=== PATIENT | male | born 1980 | race Caucasian/White ===

== ENCOUNTER 2016-09-30 01:58 | Emergency (ER) | payer SELFPAY ==
[2016-09-30] MEDS ORDERED: OXYCODONE-ACETAMINOPHEN 5-325 MG TABLET PO ONE (05:10)
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
[2016-09-30] MEDS ORDERED: CEPHALEXIN 500 MG CAPSULE PO ONE (06:33)
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
[2016-09-30] MEDS ORDERED: ACETAMINOPHEN 325 MG TABLET ONE (08:25)
[2016-09-30 08:36] VITALS: BP 141/100
== END 2016-09-30 08:20 | disposition home or self-care (01) ==
LOC: ER 01:58
DX: S02.2XXA Fracture of nasal bones, initial encounter for closed fracture (principal); S02.82XA Fracture of other specified skull and facial bones, left side, initial encounter for closed fracture; S02.40DA Maxillary fracture, left side, initial encounter for closed fracture; Y04.2XXA Assault by strike against or bumped into by another person, initial encounter; Y92.009 Unspecified place in unspecified non-institutional (private) residence as the place of occurrence of the external cause; R51 Headache; F17.200 Nicotine dependence, unspecified, uncomplicated
CPT/HCPCS: 99284; 70450; 70486; 72125; L0120

== ENCOUNTER 2016-12-06 08:52 | Emergency (ER) | payer SELFPAY ==
[2016-12-06] MEDS ORDERED: MORPHINE SULFATE 10 MG/ML INJ IV ONE (09:52)
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
[2016-12-06 12:03] VITALS: BP 126/85
== END 2016-12-06 12:03 | disposition home or self-care (01) ==
LOC: ER 08:52
DX: T14.8 Other injury of unspecified body region (principal); R07.81 Pleurodynia; M25.551 Pain in right hip; R10.9 Unspecified abdominal pain; V86.99XA Unspecified occupant of other special all-terrain or other off-road motor vehicle injured in nontraffic accident, initial encounter; Y93.89 Activity, other specified; F17.200 Nicotine dependence, unspecified, uncomplicated; B36.0 Pityriasis versicolor
CPT/HCPCS: 99283; 96374; 71260; 74177; J2270

== ENCOUNTER 2018-09-20 12:40 | Emergency (ER) | payer SELFPAY ==
[2018-09-20 13:20] VITALS: BP 122/80
--- NOTE | 2018-09-20 13:50 | RADIOLOGY REPORT (SQ) ---
EXAM DESCRIPTION: HAND RIGHT 3 VIEWS COMPLETED DATE/TIME: 09/20/2018 1:37 pm REASON FOR STUDY: injury COMPARISON: None. EXAM PARAMETERS: NUMBER OF VIEWS: Three views. TECHNIQUE: AP, lateral and oblique radiographic images acquired of the right hand. LIMITATIONS: None. FINDINGS: MINERALIZATION: Normal. BONES: No acute fracture or dislocation. Old avulsion fragment along the dorsal base 5th metacarpal at the carpometacarpal joint. JOINTS: No effusions. SOFT TISSUES: No soft tissue swelling. No foreign body. OTHER: No other significant finding. IMPRESSION: No acute fracture. Old avulsion fragment along the dorsal base 5th metacarpal at the carpometacarpal joint. TECHNICAL DOCUMENTATION: JOB ID: [id number] [employer]- All Rights Reserved Reading location - IP/workstation name: [email or web address]
[2018-09-20] MEDS ORDERED: IBUPROFEN 600 MG TABLET PO ONE (14:34)
[2018-09-20] MEDS ORDERED: ACETAMINOPHEN 325 MG TABLET PO ONE (14:34)
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
== END 2018-09-20 14:55 | disposition home or self-care (01) ==
LOC: ER 12:40
DX: S69.91XA Unspecified injury of right wrist, hand and finger(s), initial encounter (principal); Y04.0XXA Assault by unarmed brawl or fight, initial encounter; F17.200 Nicotine dependence, unspecified, uncomplicated
CPT/HCPCS: 99283